=== PATIENT | male | born 1990 | race Caucasian/White ===

== ENCOUNTER 2021-10-25 00:08 | Emergency (ER) | payer OTHER ==
[2021-10-25] MEDS ORDERED: Clindamycin Palmitate Solution 75 MG/5 ML 100 ML Bottle PO STA (01:04)
[2021-10-25] MEDS ORDERED: traMADol 50 MG Tab PO ONE (01:05)
[2021-10-25] MEDS ORDERED: Ibuprofen 600 MG Tab PO ONE (01:05)
[2021-10-25] MEDS ORDERED: Clindamycin HCl 150 MG Cap PO ONE (01:14)
== END 2021-10-25 01:28 | disposition home or self-care (01) ==
LOC: MW.ED 00:08
DX: K04.7 Periapical abscess without sinus (principal); F17.210 Nicotine dependence, cigarettes, uncomplicated
CPT/HCPCS: 99282; A9270; 99283

== ENCOUNTER 2022-11-09 16:47 | Emergency (ER) | payer OTHER ==
[2022-11-09] MEDS ORDERED: Tetracaine HCl/PF 0.5% 4 ML Bottle EYEBOTH ONE (17:12)
[2022-11-09] MEDS ORDERED: Erythromycin Base 0.5% Ophth Oint 1 GM Tube EYEBOTH ONE (17:33)
== END 2022-11-09 17:51 | disposition home or self-care (01) ==
LOC: MW.ED 16:47
DX: S05.02XA Injury of conjunctiva and corneal abrasion without foreign body, left eye, initial encounter (principal); F17.210 Nicotine dependence, cigarettes, uncomplicated; W22.8XXA Striking against or struck by other objects, initial encounter
CPT/HCPCS: 99283; A9270; J3490